=== PATIENT | male | born 1990 | race Caucasian/White ===

== ENCOUNTER 2019-04-20 00:22 | Emergency (ER) | payer OTHER ==
[2019-04-20 00:36] VITALS: BMI 20.5
--- NOTE | 2019-04-20 00:56 | PDOC ---
History of Present Illness - General Chief Complaint: Pain Stated Complaint: PAIN,BACK/LT LEG Time Seen by Provider: 04/20/19 00:55 - History of Present Illness Initial Comments: HPI: 28yo M with no reported PMH with low left-sided back pain. 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 Patient already has a referral for physical therapy from his primary care physician in [place]. Patient is in [place] because his mother lives nearby. The pain has worsened since he returned from a flight from [place]. He has taken ibuprofen, last at 3: 30pm and is unsure if it is helping. He also places ice on his back which helps. Denies saddle anesthesia, significant weight loss, history of cancer or IVDU, or urinary/fecal incontinence. No fever, chills, or night sweats. ROS: Constitutional: no fever, no chills HEENT: no throat pain, no dysphagia Cardiovascular: no chest pain, no palpitations Respiratory: no cough, no shortness of breath Gastrointestinal: no abdominal pain, no nausea Genitourinary: no dysuria, no hematuria Musculoskeletal: +back pain, Skin: no rash, no itching Neurologic: no headache, no weakness Psych: no agitation, no anxiety PE: General: Awake, alert, and fully oriented, in no acute distress Head: No signs of trauma Eyes: EOMI, sclera anicteric ENT: Moist mucus membranes Neck: Normal ROM, supple Lungs: Lungs clear, Normal breath sounds Cardio: Regular rhythm, S1 and S2 present Abdomen: Soft, nontender. No guarding, no rebound, no masses Extremities: Normal range of motion, Distal pulses present SKIN: Warm, Dry, normal turgor Neurologic: Cranial nerves II through XII grossly intact. Normal speech Back: Tender to palpation in lumbar area, left of midline, no step-offs/ deformities/fluctuance; no overlying wound or lesion ED Course/MDM: DDX including but not limited to: lumbago, spinal cord or cauda equina compression, metastatic cancer, spinal epidural abscess, vertebral osteomyelitis , vertebral compression fracture, radiculopathy, spinal stenosis, osteoarthritis , nephrolithias Presentation consistent with lumbago No red flag back pain symptoms Toradol Flexeril Lidocaine patch 04/20/19 00:56 Patient feeling better after receiving medications Able to ambulate with steady gait, although still mildly antalgic Prescriptions sent to pharmacy Patient to continue with physical therapy referral he already has Orthopedics referral Return precautions Stable for discharge Past History - Past Medical History Allergies/Adverse Reactions: Allergies Allergy/AdvReac Type Severity Reaction Status Date / Time No Known Allergies Allergy Verified 04/20/19 00:30 Home Medications: Ambulatory Orders Cyclobenzaprine HCl [Flexeril 10 mg] 10 mg PO HS PRN #10 tablet 04/20/19 Lidocaine 5% Patch [Lidoderm -] 1 patch TP DAILY #7 patch 04/20/19 Naproxen [Naprosyn] 500 mg PO BID #20 tablet 04/20/19 - Psycho Social/Smoking Cessation Hx Smoking History: Former smoker Have you smoked in the past 12 months: Yes If you are a former smoker, when did you quit?: 3 Information on smoking cessation initiated: No Hx Alcohol Use: No Drug/Substance Use Hx: No *Physical Exam - Vital Signs Last Vital Signs Temp Pulse Resp BP Pulse Ox 98.3 F 81 18 136/90 100 04/20/19 00:25 04/20/19 00:25 04/20/19 00:25 04/20/19 00:25 04/20/19 00:25 Discharge - Discharge Information Problems reviewed: Yes Clinical Impression/Diagnosis: Lumbago Qualifiers: Chronicity: acute Back pain laterality: left Sciatica presence: with sciatica Sciatica laterality: sciatica of left side Qualified Code(s): M54.42 - Lumbago with sciatica, left side Condition: Stable Disposition: HOME - Additional Discharge Information Prescriptions: Cyclobenzaprine HCl [Flexeril 10 mg] 10 mg PO HS PRN #10 tablet PRN Reason: Back Pain Lidocaine 5% Patch [Lidoderm -] 1 patch TP DAILY #7 patch Naproxen [Naprosyn] 500 mg PO BID #20 tablet - Follow up/Referral Referrals: ON STAFF,NOT [Primary Care Provider] - Mahendra Gardner MD [Staff Physician] - - Patient Discharge Instructions Patient Printed Discharge Instructions: DI for Low Back Pain Additional Instructions: You came to the emergency department for back pain. You received toradol, flexeril, and a lidoderm patch while you were here. Prescriptions sent to your pharmacy. Take as instructed. Do not take motrin/ ibuprofen/advil while you are taking naprosyn. We have referred you a specialist for further evaluation of your back pain. Call and make an appointment if your pain does not improve in the next 2-3 days. Call and make an appointment. Immediate medical attention is required if you have back pain and: numbness in the genital or rectal area, loss of bowel or bladder control, difficulty with urination; fever, unexplained weight loss, or other signs of illness or infection. If you think you are having an emergency, call for emergency medical - Post Discharge Activity
--- NOTE | 2019-04-20 01:27 | PDOC ---
Attending Attestation - Resident Resident Name: Simran Santillan - ED Attending Attestation I have performed the following: I have examined & evaluated the patient, The case was reviewed & discussed with the resident, I agree w/resident's findings & plan, Exceptions are as noted
[2019-04-20] MEDS ORDERED: CYCLOBENZAPRINE HCL 10 MG TABLET (FP) PO ONE (01:30)
[2019-04-20] MEDS ORDERED: KETOROLAC TROMETHAMINE 30 MG/1 ML VIAL IM ONE (01:30)
[2019-04-20] MEDS ORDERED: LIDOCAINE 5% TOPICAL PATCH TP ONE (01:31)
--- NOTE | 2019-04-20 02:01 | PDOC ---
Documentation entered by Anthony Yuen SCRIBE, acting as scribe for Mandy Muro MD. Mandy Muro MD: This documentation has been prepared by the Wilfrid carrizales Nirvannie, SCRIBE, under my direction and personally reviewed by me in its entirety. I confirm that the documentation accurately reflects all work, treatment, procedures, and medical decision making performed by me. Attending Attestation - Resident Resident Name: JacqueTorieSimran - ED Attending Attestation I have performed the following: I have examined & evaluated the patient, The case was reviewed & discussed with the resident, I agree w/resident's findings & plan, Exceptions are as noted - HPI HPI: 04/20/19 01:34 The patient is a 28 year old male, with no significant past medical history, who presents to the emergency department with left sided low back pain with radiation down the leg. As per patient, he has been experiencing intermittent back pain for multiple months but, he recently went to [place] at which time he was driving. Patient notes since returning from his trip his pain has been exacerbated. He notes taking Ibuprofen, with minimal relief, prompting his arrival to the ED. Patient has a pending PT referral by his PCP. He denies any paresthesias or urinary/bowel incontinence. He denies any recent chest pain or shortness of breath. Allergies: NKDA - Physicial Exam PE: 04/20/19 01:34 GENERAL: Thin, slender. Well-appearing, well-nourished. No apparent distress. HEENT: Normocephalic, atraumatic. PERRL, EOM intact. CARDIOVASCULAR: Normal S1, S2. Regular rate and rhythm. PULMONARY: Clear to auscultation bilaterally. ABDOMEN: Soft, non-distended, non-tender. +BACK: Left paraspinal down to the left buttock tenderness. No midline spinal tenderness. EXTREMITIES: Normal ROM in all four extremities. No gross deformities. SKIN: Warm, dry. No rash NEUROLOGICAL: No focal neurological deficits. - Medical Decision Making 04/20/19 02:00 28-year-old male with intermittent left-sided low back pain that has been bothering him for the past few months presents because it worsened during his recent vacation No bladder or bowel incontinence, no saddle anesthesia We will try Toradol, Flexeril and Lidoderm patch Plan DC home to follow-up with his primary doctor and go to physical therapy
[2019-04-20] MEDS ORDERED: CYCLOBENZAPRINE HCL 10 MG TABLET (FP) ONE (02:04)
[2019-04-20] MEDS ORDERED: LIDOCAINE 5% TOPICAL PATCH ONE (02:04)
[2019-04-20] MEDS ORDERED: KETOROLAC TROMETHAMINE 30 MG/1 ML VIAL ONE (02:04)
[2019-04-20 03:45] VITALS: BP 120/63; PULSE 67; TEMP 97.7
[2019-04-20] MEDS ORDERED: LIDOCAINE PATCH REMOVAL MC SCH (22:00)
== END 2019-04-20 03:25 | disposition home or self-care (01) ==
LOC: JER 00:22
PROC: 3E0233Z Introduction of Anti-inflammatory into Muscle, Percutaneous Approach (ICD-10-PCS; principal; 2019-04-20)
DX: M54.42 Lumbago with sciatica, left side (principal); Z87.891 Personal history of nicotine dependence
CPT/HCPCS: 96372; 99284-25